=== PATIENT | male | born 1940 | race Caucasian/White ===

== ENCOUNTER → 2024-11-30 | Outpatient (REF) ==
[~2024-11-30] MED LIST: ACET-907 PO; ASCO500T PO; BISA10SU27 PR; BREO1INH3 INH; DOXE50CA PO; GABA-1172 PO; MOM30SS PO; PANT-23 PO; TUMS500C PO
[2024-11-30 09:16] LABS: MEAN CORPUSCULAR HEMOGLOBIN 31.5 pg (27.0-33.0); MEAN CORPUSCULAR HGB CONC 30.6 g/dl (32.0-36.5); MEAN CORPUSCULAR VOLUME 103.2 fl (80.0-96.0); PLATELET COUNT, AUTOMATED 266 10^3/uL (150-450); RED BLOOD COUNT 3.49 10^6/uL (4.30-6.10); WHITE BLOOD COUNT 4.5 10^3/uL (4.0-10.0)
[2024-11-30 09:38] LABS: CALCIUM LEVEL 9.1 MG/DL (8.3-10.6); CREATININE FOR GFR 0.87 MG/DL (0.70-1.30); GLOMERULAR FILTRATION RATE 86.7 (>35); POTASSIUM SERUM 4.3 MMOL/L (3.5-5.1)
== END ==
PROVIDERS: ATTEND Physician Assistant
DX: N18.9 Chronic kidney disease, unspecified (principal)

== ENCOUNTER → 2024-12-05 | Outpatient (REF) ==
[2024-12-05 09:41] LABS: HEMATOCRIT 33.9 % (42.0-52.0); HEMOGLOBIN 10.6 g/dl (13.5-17.5); MEAN CORPUSCULAR HEMOGLOBIN 31.8 pg (27.0-33.0); MEAN CORPUSCULAR HGB CONC 31.3 g/dl (32.0-36.5); MEAN CORPUSCULAR VOLUME 101.8 fl (80.0-96.0); PLATELET COUNT, AUTOMATED 242 10^3/uL (150-450); RED BLOOD COUNT 3.33 10^6/uL (4.30-6.10); WHITE BLOOD COUNT 9.5 10^3/uL (4.0-10.0)
[2024-12-05 10:06] LABS: CALCIUM LEVEL 8.3 MG/DL (8.3-10.6); CREATININE FOR GFR 1.45 MG/DL (0.70-1.30); GLOMERULAR FILTRATION RATE 48.1 (>35); POTASSIUM SERUM 5.2 MMOL/L (3.5-5.1)
== END ==
PROVIDERS: ATTEND Physician Assistant
DX: N18.9 Chronic kidney disease, unspecified (principal)

== ENCOUNTER 2024-12-06 14:46 | Inpatient (IN) | payer MEDICAID, MEDICARE ==
[~2024-12-06] VITALS: Ht 188 cm; Wt 81.8 kg
[2024-12-06 15:28] LABS: VENOUS BASE EXCESS -0.4 (-2.0-2.0); VENOUS HCO3 26.6 MMOL/L (23.0-27.0); VENOUS O2 SATURATION 94.6 % (60.0-80.0); VENOUS PARTIAL PRESSURE CO2 54.5 mmHg (38.0-50.0); VENOUS PARTIAL PRESSURE O2 75.7 mmHg (30.0-50.0); VENOUS PH 7.306 UNITS (7.330-7.430); VENOUS STANDARD HCO3 24.1 MMOL/L; VENOUS TOTAL CO2 28.3 MMOL/L (24.0-28.0)
[2024-12-06 15:45] LABS: BASO % 0.4 % (0.0-1.0); EOS # 0.1 10^3/uL (0.0-0.5); EOS % 0.7 % (0.0-3.0); HEMATOCRIT 33.4 % (42.0-52.0); HEMOGLOBIN 10.8 g/dl (13.5-17.5); LYMPH # 0.3 10^3/uL (1.5-5.0); LYMPH % 3.7 % (24.0-44.0); MEAN CORPUSCULAR HEMOGLOBIN 32.2 pg (27.0-33.0); MEAN CORPUSCULAR HGB CONC 32.3 g/dl (32.0-36.5); MEAN CORPUSCULAR VOLUME 99.7 fl (80.0-96.0); MONO # 0.6 10^3/uL (0.0-0.8); MONO % 7.5 % (2.0-8.0); NEUTROPHILS # 7.2 10^3/uL (1.5-8.5); NEUTROPHILS % 86.7 % (36.0-66.0); PLATELET COUNT, AUTOMATED 239 10^3/uL (150-450); RED BLOOD COUNT 3.35 10^6/uL (4.30-6.10); WHITE BLOOD COUNT 8.4 10^3/uL (4.0-10.0)
[2024-12-06 16:14] LABS: KETONE, URINE AUTO RFX NEGATIVE (NEGATIVE); MUCUS, URINE RFX SMALL (NEGATIVE); NITRITE, URINE AUTO RFX NEGATIVE (NEGATIVE); RBC, URINE AUTO RFX 100 /HPF (0-3); SQUAM EPITHELIAL CELL UR AURFX 0 /HPF (0-6)
[2024-12-06 16:15] LABS: LEUKOCYTE ESTERASE UR AUTO RFX 3+ (NEGATIVE); WBC, URINE AUTO RFX 33 /HPF (0-3)
[2024-12-06] MEDS: IPRATROPIUM 0.5MG/ALBUTEROL 2.5MG INH SOL UD 3ML NEB ONE (16:18)
[2024-12-06] MEDS ORDERED: ASCO500T PO (17:04)
[2024-12-06] MEDS ORDERED: GABA-1172 PO (17:04)
[2024-12-06] MEDS ORDERED: DOXE50CA PO (17:04)
[2024-12-06] MEDS ORDERED: BREO1INH3 INH (17:04)
[2024-12-06] MEDS ORDERED: PANT-23 PO (17:04)
[2024-12-06] MEDS ORDERED: MOM30SS PO (17:10)
[2024-12-06] MEDS ORDERED: BISA10SU27 PR (17:10)
[2024-12-06] MEDS ORDERED: ACET-907 PO ×2 (17:10)
[2024-12-06] MEDS ORDERED: TUMS500C PO (17:12)
[2024-12-06] MEDS ORDERED: HOME MED LIST COMPLETE! XX SCH (17:15)
[2024-12-06 17:27] LABS: CPK CREATINE PHOSPHOKINASE < 15 U/L (46-171)
[2024-12-06 17:38] LABS: ALBUMIN 1.4 G/DL (3.2-5.2); ALKALINE PHOSPHATASE 68 U/L (40-129); ALT/SGPT 9 U/L (7.0-40); AST/SGOT < 8 U/L (<34); BILIRUBIN,DIRECT 0.1 MG/DL (<0.4); BILIRUBIN,TOTAL 0.2 MG/DL (0.3-1.2); BLOOD UREA NITROGEN 52 MG/DL (9-23); CALCIUM LEVEL 7.1 MG/DL (8.3-10.6); CARBON DIOXIDE LEVEL 31 MMOL/L (20-31); CHLORIDE LEVEL 95 MMOL/L (98-107); CK-MB VALUE MASS < 1.0 NG/ML (<3.6); CREATININE FOR GFR 2.11 MG/DL (0.70-1.30); GLOMERULAR FILTRATION RATE 30.7 (>35); GLUCOSE, FASTING 112 MG/DL (74-106); POTASSIUM SERUM 5.6 MMOL/L (3.5-5.1); SODIUM LEVEL 131 MMOL/L (136-145); THYROID STIMULATING HORMONE 1.873 uIU/ML (0.55-4.78); THYROXINE (T4) 2.8 UG/DL (4.5-10.9); TOTAL PROTEIN 2.9 G/DL (5.7-8.2)
[2024-12-06] MEDS ORDERED: NS 500 ML IV ONE (18:05)
[2024-12-06] MEDS: NS 500 ML IV ONE (18:28)
[2024-12-06] MEDS: PATIROMER SORBITEX CALCIUM 8.4 GM POWDER PACKET (VELTASSA) PO ONE (18:48)
[2024-12-06] MEDS: SODIUM BICARBONATE 8.4% INJ 50ML SYRINGE IV ONE (18:51)
[2024-12-06] MEDS: DEXTROSE 50% 50ML SYRINGE IV ONE (18:56)
[2024-12-06] MEDS: HumuLIN R (REGULAR) INSULIN (NovoLIN R) **100U/ML** PER UNIT IV ONE (18:56)
[2024-12-06] MEDS: methylPREDNISolone 125MG 2ML VIAL IV ONE (19:00)
[2024-12-06] MEDS: CALCIUM GLUCONATE 1,000MG/10ML VIAL (100MG/ML) IV ONE (19:00)
[2024-12-06] MEDS: cefTRIAXone SOD 1 GM in DEXTROSE 5% (D5W) ADV/MINI-BAG 50 ML IV ONE (19:29)
[2024-12-06] MEDS: SYMBICORT 160/4.5MCG INHALER 6GM INH SCH (20:00)
[2024-12-06] MEDS: ALBUTEROL SULFATE 2.5MG/0.5ML INH CONCENTRATE NEB SOLN INH ONE (20:05)
[2024-12-06 20:09] LABS: C REACTIVE PROTEIN QUANTITATIV 3.34 MG/DL (<1.0)
[2024-12-06] MEDS ORDERED: LEVALBUTEROL 1.25 MG 0.5ML CONCENTRATE NEB INH PRN (20:10)
[2024-12-06] MEDS: NS (Normal Saline) 0.9% 1,000 ML IV SCH (20:52)
[2024-12-06] MEDS: DOCUSATE SODIUM 100MG CAPSULE PO SCH (21:00)
[2024-12-06 23:52] LABS: IONIZED CALCIUM 4.1 MG/DL (4.5-5.3)
[2024-12-07 00:09] LABS: INR 0.97; PARTIAL THROMBOPLASTIN TIME 36.4 SECONDS (24.8-34.2); PROTHROMBIN TIME 13.2 SECONDS (12.5-14.5)
[2024-12-07 00:28] LABS: PROCALCITONIN 0.2 ng/ml
[2024-12-07] MEDS: IPRATROPIUM 0.5MG/ALBUTEROL 2.5MG INH SOL UD 3ML NEB SCH (01:41)
[2024-12-07 05:39] LABS: CALCIUM LEVEL 7.6 MG/DL (8.3-10.6); CREATININE FOR GFR 2.36 MG/DL (0.70-1.30); GLOMERULAR FILTRATION RATE 26.8 (>35); POTASSIUM SERUM 5.4 MMOL/L (3.5-5.1)
[2024-12-07 08:45] LABS: CALCIUM LEVEL 8.1 MG/DL (8.3-10.6); CREATININE FOR GFR 2.41 MG/DL (0.70-1.30); GLOMERULAR FILTRATION RATE 26.2 (>35); MAGNESIUM LEVEL 1.8 MG/DL (1.8-2.4); POTASSIUM SERUM 5.6 MMOL/L (3.5-5.1)
[2024-12-07] MEDS: HEPARIN SOD (PORCINE) 5000UNITS/ML 1ML VIAL/SYRINGE SC SCH (08:58)
[2024-12-07] MEDS: PANTOPRAZOLE 40MG VIAL IV SCH (08:58)
[2024-12-07] MEDS: CALCIUM CARBONATE 500 MG CHEW U/D PO SCH (08:58)
[2024-12-07] MEDS: predniSONE 20 MG TAB PO SCH (08:58)
[2024-12-07] MEDS: VITAMIN D (CHOLECALCIFEROL) 400 INTERNATIONAL UNITS TAB PO SCH (08:59)
[2024-12-07] MEDS: FUROSEMIDE 40MG/4ML VIAL IV ONE (11:27)
[2024-12-07 13:20] VITALS: BP 143/81; TEMP 97.9; O2SAT 90
[2024-12-07 13:30] VITALS: BP 143/81; TEMP 97.9; O2SAT 90
[2024-12-07] MEDS ORDERED: IPRATROPIUM 0.5MG/ALBUTEROL 2.5MG INH SOL UD 3ML NEB PRN (13:45)
[2024-12-07] MEDS: DEXTROSE 50% 50ML SYRINGE IV STA (13:51)
[2024-12-07] MEDS: HumuLIN R (REGULAR) INSULIN (NovoLIN R) **100U/ML** PER UNIT IV STA (13:52)
[2024-12-07 15:41] LABS: CALCIUM LEVEL 8.4 MG/DL (8.3-10.6); CREATININE FOR GFR 2.6 MG/DL (0.70-1.30); GLOMERULAR FILTRATION RATE 23.9 (>35); POTASSIUM SERUM 5.8 MMOL/L (3.5-5.1)
[2024-12-07 16:00] VITALS: BP 142/80; TEMP 98.1; O2SAT 90
[2024-12-07] MEDS: BISACODYL 10MG SUPP PR SCH (16:29)
[2024-12-07] MEDS: SENOKOT S TAB PO SCH (16:29)
[2024-12-07 18:00] VITALS: O2SAT 90
[2024-12-07] MEDS: PATIROMER SORBITEX CALCIUM 8.4 GM POWDER PACKET (VELTASSA) PO ONE (18:54)
[2024-12-07 19:28] VITALS: BP 139/78; TEMP 97.9; O2SAT 91
[2024-12-07] MEDS: cefTRIAXone SOD 1 GM in DEXTROSE 5% (D5W) ADV/MINI-BAG 50 ML IV SCH (20:58)
[2024-12-07] MEDS: ACETAMINOPHEN 325 MG TAB PO PRN (20:59)
[2024-12-07] MEDS: GABAPENTIN 300 MG CAP PO SCH (21:00)
[2024-12-07] MEDS: DOXEPIN 25 MG CAP PO SCH (21:01)
[2024-12-07] MEDS: FUROSEMIDE 40MG/4ML VIAL IV SCH (21:07)
[2024-12-07 21:24] VITALS: O2SAT 90
[2024-12-08] VITALS (9 sets, daily range): BP systolic 102–140; BP diastolic 57–83; TEMP 97.5–97.9; O2SAT 91–95
[2024-12-08 06:12] LABS: CALCIUM LEVEL 8.3 MG/DL (8.3-10.6); CREATININE FOR GFR 2.04 MG/DL (0.70-1.30); GLOMERULAR FILTRATION RATE 31.9 (>35); MAGNESIUM LEVEL 1.8 MG/DL (1.8-2.4); PERCENT SATURATION 34.9 % (19.7-50.0); POTASSIUM SERUM 4.5 MMOL/L (3.5-5.1)
[2024-12-09 00:10] VITALS: BP 125/74; TEMP 97.7; O2SAT 93
[2024-12-09 04:00] VITALS: BP 125/74; TEMP 97.6; O2SAT 93
[2024-12-09 05:56] LABS: CALCIUM LEVEL 8.3 MG/DL (8.3-10.6); CREATININE FOR GFR 1.26 MG/DL (0.70-1.30); GLOMERULAR FILTRATION RATE 56.9 (>35); MAGNESIUM LEVEL 1.7 MG/DL (1.8-2.4)
[2024-12-09 08:10] VITALS: BP 100/60; TEMP 97.9; O2SAT 90
[2024-12-09] MEDS: MAGNESIUM OXIDE 400MG TAB (MAG-OX) PO ONE (08:28)
[2024-12-09 09:53] VITALS: O2SAT 92
[2024-12-09] MEDS ORDERED: MAGN400T33 PO (10:33)
[2024-12-09] MEDS ORDERED: LASI40TA9 PO (10:33)
[2024-12-09] MEDS ORDERED: PRED10TA2 PO (10:33)
[2024-12-09 11:57] VITALS: BP 145/88; TEMP 97.9; O2SAT 93
[2024-12-09] MEDS ORDERED: MAGNESIUM OXIDE 400MG TAB (MAG-OX) PO SCH (21:00)
== END 2024-12-09 13:47 | DRG 699 ==
LOC: EDBD 14:46 → M ED 14:46 → OBSVTOIN 22:47 → M ED INP 22:47 → M MSPAV 12-07 13:12
PROVIDERS: ADMIT Family Medicine; ATTEND Student in an Organized Health Care Education/Training Program
DX: T83.518A Infection and inflammatory reaction due to other urinary catheter, initial encounter (principal); N17.9 Acute kidney failure, unspecified; N39.0 Urinary tract infection, site not specified; E46 Unspecified protein-calorie malnutrition; J44.1 Chronic obstructive pulmonary disease with (acute) exacerbation; E87.1 Hypo-osmolality and hyponatremia; N13.30 Unspecified hydronephrosis; E87.3 Alkalosis; D64.9 Anemia, unspecified; N18.30 Chronic kidney disease, stage 3 unspecified; E87.5 Hyperkalemia; K21.9 Gastro-esophageal reflux disease without esophagitis; F41.9 Anxiety disorder, unspecified; G47.00 Insomnia, unspecified; F32.A Depression, unspecified; N31.9 Neuromuscular dysfunction of bladder, unspecified; R33.9 Retention of urine, unspecified; E83.51 Hypocalcemia; Y84.6 Urinary catheterization as the cause of abnormal reaction of the patient, or of later complication, without mention of misadventure at the time of the procedure; K59.09 Other constipation; R31.29 Other microscopic hematuria; Z79.899 Other long term (current) drug therapy

== ENCOUNTER → 2024-12-07 | Outpatient (REF) ==
[~2024-12-07] MED LIST changes: +LASI40TA9 PO; +MAGN400T33 PO; +PRED10TA2 PO
[2024-12-07 07:29] LABS: HEMATOCRIT 31.3 % (42.0-52.0); HEMOGLOBIN 10.1 g/dl (13.5-17.5); MEAN CORPUSCULAR HEMOGLOBIN 29.2 pg (27.0-33.0); MEAN CORPUSCULAR HGB CONC 32.3 g/dl (32.0-36.5); MEAN CORPUSCULAR VOLUME 90.5 fl (80.0-96.0); PLATELET COUNT, AUTOMATED 183 10^3/uL (150-450); RED BLOOD COUNT 3.46 10^6/uL (4.30-6.10); WHITE BLOOD COUNT 7.2 10^3/uL (4.0-10.0)
[2024-12-07 07:59] LABS: CALCIUM LEVEL 8.4 MG/DL (8.3-10.6); GLOMERULAR FILTRATION RATE 75.1 (>35); POTASSIUM SERUM 4.5 MMOL/L (3.5-5.1)
== END ==
PROVIDERS: ATTEND Physician Assistant
DX: N18.9 Chronic kidney disease, unspecified (principal)

== ENCOUNTER → 2024-12-12 | Outpatient (REF) | payer MEDICARE ==
[2024-12-12 08:25] LABS: HEMATOCRIT 35.4 % (42.0-52.0); HEMOGLOBIN 10.9 g/dl (13.5-17.5); MEAN CORPUSCULAR HEMOGLOBIN 31.5 pg (27.0-33.0); MEAN CORPUSCULAR HGB CONC 30.8 g/dl (32.0-36.5); MEAN CORPUSCULAR VOLUME 102.3 fl (80.0-96.0); PLATELET COUNT, AUTOMATED 341 10^3/uL (150-450); RED BLOOD COUNT 3.46 10^6/uL (4.30-6.10); WHITE BLOOD COUNT 6.9 10^3/uL (4.0-10.0)
[2024-12-12 08:45] LABS: BLOOD UREA NITROGEN 23 MG/DL (9-23); CALCIUM LEVEL 8.8 MG/DL (8.3-10.6); CARBON DIOXIDE LEVEL 36 MMOL/L (20-31); CHLORIDE LEVEL 97 MMOL/L (98-107); CREATININE FOR GFR 0.71 MG/DL (0.70-1.30); GLOMERULAR FILTRATION RATE > 90.0 (>35); GLUCOSE, FASTING 83 MG/DL (74-106); SODIUM LEVEL 140 MMOL/L (136-145)
== END ==
PROVIDERS: ATTEND Physician Assistant
DX: N18.9 Chronic kidney disease, unspecified (principal)

== ENCOUNTER → 2024-12-19 | Outpatient (REF) ==
[2024-12-19 08:44] LABS: HEMATOCRIT 33.5 % (42.0-52.0); HEMOGLOBIN 10.4 g/dl (13.5-17.5); MEAN CORPUSCULAR HEMOGLOBIN 32.3 pg (27.0-33.0); PLATELET COUNT, AUTOMATED 297 10^3/uL (150-450); RED BLOOD COUNT 3.22 10^6/uL (4.30-6.10); WHITE BLOOD COUNT 7.2 10^3/uL (4.0-10.0)
[2024-12-19 09:15] LABS: CALCIUM LEVEL 9.1 MG/DL (8.3-10.6); CREATININE FOR GFR 0.79 MG/DL (0.70-1.30); GLOMERULAR FILTRATION RATE 88.7 (>35)
== END ==
PROVIDERS: ATTEND Physician Assistant
DX: N18.9 Chronic kidney disease, unspecified (principal)

== ENCOUNTER → 2025-02-15 | Outpatient (REF) | payer MEDICARE ==
[2025-02-15 10:31] LABS: PLATELET COUNT, AUTOMATED 243 10^3/uL (150-450)
[2025-02-15 11:05] LABS: CALCIUM LEVEL 9.5 MG/DL (8.3-10.6); CARBON DIOXIDE LEVEL 35.0 MMOL/L (20-31); CHLORIDE LEVEL 96.0 MMOL/L (98-107); CREATININE FOR GFR 0.82 MG/DL (0.70-1.30); GLOMERULAR FILTRATION RATE 87.7 (>35); POTASSIUM SERUM 4.0 MMOL/L (3.5-5.1); SODIUM LEVEL 140.0 MMOL/L (136-145)
== END ==
PROVIDERS: ATTEND Physician Assistant
DX: N18.9 Chronic kidney disease, unspecified (principal)

== ENCOUNTER → 2025-02-22 | Outpatient (REF) | payer MEDICARE ==
[2025-02-22 08:32] LABS: PLATELET COUNT, AUTOMATED 266 10^3/uL (150-450)
[2025-02-22 09:04] LABS: CALCIUM LEVEL 9.0 MG/DL (8.3-10.6); CARBON DIOXIDE LEVEL 36.0 MMOL/L (20-31); CHLORIDE LEVEL 96.0 MMOL/L (98-107); CREATININE FOR GFR 0.93 MG/DL (0.70-1.30); GLOMERULAR FILTRATION RATE 82.0 (>35); POTASSIUM SERUM 4.4 MMOL/L (3.5-5.1); SODIUM LEVEL 141.0 MMOL/L (136-145)
== END ==
PROVIDERS: ATTEND Physician Assistant
DX: N18.9 Chronic kidney disease, unspecified (principal)

== ENCOUNTER → 2025-02-27 | Outpatient (REF) | payer MEDICARE | PROVIDERS: ATTEND Physician Assistant | DX: R31.9 Hematuria, unspecified (principal); R06.02 Shortness of breath ==

== ENCOUNTER → 2025-02-27 | Outpatient (REF) | payer MEDICARE ==
[2025-02-27 13:34] LABS: BASO # 0.0 10^3/uL (0.0-0.2); BASO % 0.4 % (0.0-1.0); EOS # 0.0 10^3/uL (0.0-0.5); EOS % 0.4 % (0.0-3.0); LYMPH # 0.4 10^3/uL (1.5-5.0); LYMPH % 6.4 % (24.0-44.0); MONO # 0.5 10^3/uL (0.0-0.8); MONO % 8.7 % (2.0-8.0); NEUTROPHILS # 4.7 10^3/uL (1.5-8.5); NEUTROPHILS % 83.6 % (36.0-66.0); PLATELET COUNT, AUTOMATED 225 10^3/uL (150-450)
[2025-02-27 14:03] LABS: CALCIUM LEVEL 8.4 MG/DL (8.3-10.6); CARBON DIOXIDE LEVEL 35.0 MMOL/L (20-31); CHLORIDE LEVEL 97.0 MMOL/L (98-107); CREATININE FOR GFR 0.79 MG/DL (0.70-1.30); GLOMERULAR FILTRATION RATE 88.7 (>35); POTASSIUM SERUM 4.5 MMOL/L (3.5-5.1); SODIUM LEVEL 139.0 MMOL/L (136-145)
== END ==
PROVIDERS: ATTEND Physician Assistant
DX: R31.9 Hematuria, unspecified (principal); R06.02 Shortness of breath